=== PATIENT | female | born 1955 | race Caucasian/White ===

== ENCOUNTER 2025-05-12 22:52 | Emergency (ER) | payer MEDICARE ==
[~2025-05-12] VITALS: Ht 167.6 cm; Wt 72.6 kg
[~2025-05-12 22:52] MED LIST: BACTRIM DS TAB1 EACH PO
[2025-05-12 23:06] VITALS: TEMP 98.2
[2025-05-12 23:23] LABS: BASOPHILS % 0.5 % (0.0-1.0); EOSINOPHILS % 0.4 % (0.0-6.0); LYMPHOCYTES % 33.9 % (18.0-39.1); MONOCYTES % 6.5 % (4.4-11.3); NEUTROPHILS % 58.4 % (38.7-80.0); RED CELL DISTRIBUTION WIDTH 13.6 % (11.7-14.4)
[2025-05-12] MEDS: SODIUM CHLORIDE 0.9% 1000ML 1,000 ML IV STA ×2 (23:33→23:56)
[2025-05-12] MEDS: ONDANSETRON HCL INJ 2MG/ML 2ML 2 MG/ML VIAL IV STA (23:33)
[2025-05-12] MEDS: ACETAMINOPHEN 325 MG TAB PO STA (23:34)
[2025-05-12] MEDS: METRONIDAZOLE 500MG/NS 100ML 100 ML IV SCH (23:56)
[2025-05-12 23:59] LABS: EST GLOMERULAR FILTRATION RATE 63.0 ML/MIN (>=60)
[2025-05-13 00:25] LABS: LEUKOCYTE ESTERASE ,URINE TRACE (NEGATIVE); PROTEIN,URINE DIPSTICK 2+ (NEGATIVE); URINE UROBILINOGEN 1 mg/dL (0.2 - 1)
[2025-05-13 00:46] LABS: EPITHELIAL CELLS,URINE MODERATE /LPF
[2025-05-13] MEDS ORDERED: POTASSIUM CHLORIDE 20 MEQ TAB CR PO ONE (01:01)
[2025-05-13] MEDS: POTASSIUM CHLORIDE 20 MEQ TAB CR PO STA (01:04)
[2025-05-13] MEDS: CIPROFLOXACIN 400 MG/D5W 200ML 200 ML IV SCH (01:30)
[2025-05-13] MEDS: Morphine 4mg INJECTION 4 MG/ML INJ IV STA (01:31)
[2025-05-13] MEDS: ONDANSETRON HCL INJ 2MG/ML 2ML 2 MG/ML VIAL IV STA (01:31)
[2025-05-13] MEDS: SODIUM CHLORIDE 0.9% 500ML 500 ML IV STA (01:35)
[2025-05-13 03:18] VITALS: PULSE 96; RESP 18; O2SAT 100
== END 2025-05-13 03:39 | disposition other institution (70) ==
LOC: ER 23:06
DX: N39.0 Urinary tract infection, site not specified (principal); A41.9 Sepsis, unspecified organism; R11.2 Nausea with vomiting, unspecified; R68.83 Chills (without fever); I10 Essential (primary) hypertension; E11.9 Type 2 diabetes mellitus without complications; J44.9 Chronic obstructive pulmonary disease, unspecified; J45.909 Unspecified asthma, uncomplicated; E05.90 Thyrotoxicosis, unspecified without thyrotoxic crisis or storm; K76.0 Fatty (change of) liver, not elsewhere classified; E87.6 Hypokalemia; Z88.0 Allergy status to penicillin; Z91.012 Allergy to eggs
CPT/HCPCS: 36415; 71045; 74177; 80053; 81001; 82550; 83605; 83690; 84484; 85025; 87040; 87086; 93005; 94760; 99284; J2270; J2405; J7030; J7040